=== PATIENT | female | born 1975 | race American Indian/Alaskan Native ===

== ENCOUNTER 2019-01-10 07:18 | Emergency (ER) | payer BC ==
[2019-01-10] MEDS ORDERED: NACL 0.9% 1000 ML 1,000 ML IV ONE (08:43)
[2019-01-10] MEDS ORDERED: TORADOL IV ONE (08:43)
--- NOTE | 2019-01-10 08:47 | Emergency Department Report ---
ED Back Pain/Injury HPI - General Chief Complaint: Back Pain/Injury Stated Complaint: Back pain Time Seen by Provider: 01/10/19 08:20 Source: patient Limitations: No Limitations - History of Present Illness Initial Comments: 43-year-old female presents to the ED with complaint of right flank pain 1 week. Patient states pain is worse when she passes gas or has a bowel movement. Denies fever, cough, chest pain, shortness of breath, dysuria, hematuria, abdominal pain. Patient states she has used icy [place], Goody powder, muscle relaxers, all without relief. MD Complaint: back pain -: week(s) (1.5) Similar Symptoms Previously: No Radiation: none Severity: moderate Quality: aching Consistency: intermittent Improves With: none Worsens With: other (bowel movement, passing gas) Associated Symptoms: denies: chest pain, cough, fever/chills, abdominal pain, nausea/vomiting, shortness of breath Treatments Prior to Arrival: NSAIDS, other medications - Related Data Previous Rx's Medication Instructions Recorded Last Taken Type Methocarbamol [Robaxin-750] 750 mg PO Q6HR PRN #20 tablet 01/10/19 Unknown Rx Naproxen [Naprosyn] 500 mg PO BID #20 tablet 01/10/19 Unknown Rx Allergies Allergy/AdvReac Type Severity Reaction Status Date / Time No Known Allergies Allergy Unverified 01/10/19 07:22 ED Review of Systems ROS: Stated complaint: Back pain Other details as noted in HPI Comment: All other systems reviewed and negative Constitutional: denies: chills, fever Respiratory: denies: cough, shortness of breath Cardiovascular: denies: chest pain Gastrointestinal: denies: abdominal pain, nausea, vomiting, diarrhea Genitourinary: denies: dysuria, frequency, hematuria Musculoskeletal: back pain ED Past Medical Hx - Past Medical History Previous Medical History?: No - Surgical History Past Surgical History?: No - Medications Home Medications: Home Medications Medication Instructions Recorded Confirmed Last Taken Type Methocarbamol [Robaxin-750] 750 mg PO Q6HR PRN #20 tablet 01/10/19 Unknown Rx Naproxen [Naprosyn] 500 mg PO BID #20 tablet 01/10/19 Unknown Rx ED Physical Exam - General Limitations: No Limitations ED Course Vital Signs 01/10/19 01/10/19 09:07 09:10 Respiratory 15 15 Rate ED Medical Decision Making - Lab Data Result diagrams: 01/10/19 08:47 01/10/19 08:51 - Radiology Data Radiology results: report reviewed - Medical Decision Making - back pain x 1.5 weeks - labs normal, including D-dimer - CT Abd/ Pelvis unremarkable - pt appears nontoxic - outpt f/u advised - return precautions given - Differential Diagnosis muscle strain, pyelonephritis, kidney stone, PE Critical care attestation.: If time is entered above; I have spent that time in minutes in the direct care of this critically ill patient, excluding procedure time. ED Disposition Clinical Impression: Low back pain Disposition: DC- TO HOME OR SELFCARE Is pt being admited?: No Condition: Stable Instructions: Acute Low Back Pain (ED) Prescriptions: Naproxen [Naprosyn] 500 mg PO BID #20 tablet Methocarbamol [Robaxin-750] 750 mg PO Q6HR PRN #20 tablet PRN Reason: Spasms Referrals: [facility] [Other] - 3-5 Days Time of Disposition: 11:31
[2019-01-10 09:31] LABS: HCG Qualitative,Urine Negative (Negative)
[2019-01-10 09:34] LABS: Bacteria,Urine 1+ /HPF (Negative); Bilirubin,Urine NEG (Negative); Blood,Urine MOD (Negative); Color,Urine Yellow (Yellow); Hyaline Casts,Urine 1 /LPF; Mucus,Urine 1+ /HPF; Protein,Urine <15 mg/dL mg/dL (Negative); Urobilinogen,Urine < 2.0 mg/dL (<2.0)
[2019-01-10 09:38] LABS: Basophils % (Auto) 0.2 % (0.0-1.8); Eosinophils # (Auto) 0.2 K/mm3 (0.0-0.4); Hematocrit 38.2 % (30.3-42.9); Hemoglobin 12.8 gm/dl (10.1-14.3); Lymphocytes # (Auto) 3.2 K/mm3 (1.2-5.4); Lymphocytes % (Auto) 45.8 % (13.4-35.0); Mean Corpuscular HGB Conc 34 % (30-34); Mean Corpuscular Volume 86 fl (79-97); Monocytes # (Auto) 0.6 K/mm3 (0.0-0.8); Platelet Count 277 K/mm3 (140-440); Red Blood Count 4.45 M/mm3 (3.65-5.03); Red Cell Distribution Width 14.3 % (13.2-15.2)
[2019-01-10 09:41] LABS: Alanine Aminotransferase 18 units/L (7-56); Albumin 3.8 g/dL (3.9-5); BUN/Creatinine Ratio 20; Blood Urea Nitrogen 10 mg/dL (7-17); Calcium 8.9 mg/dL (8.4-10.2); Hemolysis Index 8
--- NOTE | 2019-01-10 09:58 | XRay Report ---
ROUTINE CHEST, TWO VIEWS: HISTORY: Cough. The trachea, heart, mediastinal contour, lung cespedes and bony thorax are unremarkable. IMPRESSION: Unremarkable chest x-ray.
--- NOTE | 2019-01-10 11:09 | Cat Scan Report ---
CT ABDOMEN PELVIS WITH CONTRAST: HISTORY: Right flank pain. COMPARISON: none. TECHNIQUE: Helical CT in 1.25mm intervals following IV contrast. Sagittal and coronal reconstructions. FINDINGS: Lung bases: Normal. Liver: A 1 cm focus of enhancement is identified near the dome of the liver. This area is isoechoic on the delayed images. This is consistent with a type I enhancement pattern of a cavernous hemangioma. No suspicious liver mass is identified. There is mild diffuse fatty infiltration of the liver parenchyma. Biliary system: Normal. Pancreas: Normal. Spleen: Normal. Kidneys/ureters/bladder: Normal. Adrenal glands: Normal. Aorta: Normal. Intestines: Within normal limits given no oral contrast was administered. Appendix: Normal. Pelvic viscera: Normal. Ascites: None. Adenopathy: None. Musculoskeletal: Normal. IMPRESSION: No acute process is identified in the abdomen or pelvis. No clear explanation for right flank pain. Mild hepatic steatosis. 1 cm cavernous hemangioma of the liver.
[2019-01-10 11:44] VITALS: BP 135/79
== END 2019-01-10 11:43 | disposition home or self-care (01) ==
LOC: ED 07:18
DX: M54.5 Low back pain (principal); R10.9 Unspecified abdominal pain
CPT/HCPCS: 36415; 71046; 74177; 80053; 81001; 81025; 83690; 85025; 85379; 96374; 99284; J1885; J7030; Q9967